=== PATIENT | female | born 1940 | race Hispanic/Latino ===

== ENCOUNTER 2017-08-21 13:15 | Emergency (ER) | payer MEDICARE ==
[2017-08-21 13:16] VITALS: BMI 29.0
[2017-08-21 13:42] VITALS: RESP 18; TEMP 99.1; O2SAT 98
--- NOTE | 2017-08-21 13:46 | ED PDOC ---
Arrival/HPI - General Chief Complaint: Weakness/Neurological Deficit Time Seen by Provider: 08/21/17 13:23 Historian: Patient - History of Present Illness Narrative History of Present Illness (Text): 08/21/17 13:53 A 76 year old female, whose past medical history includes menopause, hypertension, kdiney stones (right nephrectomy 35 years ago), colon cancer ( colectomy 2013, on chemotherapy), presents to the emergency department complaining of generalized weakness. Patient mentions she is currently going through chemotherapy every 3 weeks and most recent treatment was 8 days ago. Patient reports 2 weeks ago, experienced sweats and thought she had the flu. She went to PMD and was told she had no flu and directed patient to her oncologist, Dr. Martini. Yesterday weakness was worse than today and patient was recommended by family to got to the ER. She notes experiencing slight diarrhea, however she considers it a normal side effect of the chemotherapy treatment. Patient denies any fever, cough, any pain, appetite changes, urinary output changes, lightheadedness, leg swelling, or any other complaints at this time. PMD: Dr. Martín Jimenez Oncologist: Dr. Walter Martini Past Medical History - Provider Review Nursing Documentation Reviewed: Yes - Infectious Disease Hx of Infectious Diseases: None - Reproductive Menopause: Yes - Cardiac Hx Hypertension: Yes Hx Pacemaker: No - Pulmonary Hx Respiratory Disorders: No - Neurological Hx Paralysis: No - HEENT Hx HEENT Disorder: No - Renal Hx Renal Disorder: No Hx Kidney Stones: Yes (right nephrectomy 35 yrs ago) - Endocrine/Metabolic Hx Endocrine Disorders: No - Hematological/Oncological Hx Blood Transfusions: No Hx Blood Transfusion Reaction: No Other/Comment: colon ca , on chemo - Integumentary Hx Dermatological Disorder: No - Musculoskeletal/Rheumatological Hx Musculoskeletal Disorders: No - Gastrointestinal Hx Gastrointestinal Disorders: Yes Other/Comment: colon cancer colectomy aug 2013 - Genitourinary/Gynecological Hx Genitourinary Disorders: Yes Hx Ovarian Cancer: Yes (possibility) - Psychiatric Hx Emotional Abuse: No Hx Physical Abuse: No Hx Substance Use: No - Surgical History Other/Comment: colectomy aug 2013 right nephrectomy 35 yrs ago stones - Anesthesia Hx Anesthesia Reactions: No Hx Malignant Hyperthermia: No - Suicidal Assessment Feels Threatened In Home Enviroment: No Family/Social History - Physician Review Nursing Documentation Reviewed: Yes Family/Social History: No Known Family HX Smoking Status: Never Smoked Hx Alcohol Use: Yes (SOCIAL) Hx Substance Use: No Allergies/Home Meds Allergies/Adverse Reactions: Allergies No Known Allergies Allergy (Verified 08/21/17 13:37) Home Medications: Home Meds Medication Instructions Recorded Confirmed Capecitabine 500 mg PO 08/21/17 amLODIPine [Norvasc] 5 mg PO DAILY 08/21/17 08/21/17 Review of Systems - Physician Review All systems were reviewed & negative as marked: Yes - Review of Systems Constitutional: Other (generalized weakness). absent: Fevers Respiratory: absent: Cough Cardiovascular: absent: Chest Pain Gastrointestinal: Diarrhea (slgit diarrhea however according to patient it is a normal side effect to the chemotherapy treatment). absent: Abdominal Pain, Appetite Changes Genitourinary Female: absent: Urine Output Changes Musculoskeletal: absent: Other (leg swelling) Neurological: absent: Other (lightheadedness) Physical Exam Vital Signs Reviewed: Yes Vital Signs Temp Pulse Resp BP Pulse Ox 08/21/17 17:35 79 18 130/71 98 08/21/17 16:39 86 18 134/79 98 08/21/17 13:30 99.1 F 90 18 136/82 98 Temperature: Afebrile Blood Pressure: Normal Pulse: Regular Respiratory Rate: Normal Appearance: Positive for: Well-Appearing Pain Distress: None Mental Status: Positive for: Alert and Oriented X 3 - Systems Exam Head: Present: Atraumatic, Normocephalic Pupils: Present: PERRL Extroacular Muscles: Present: EOMI Conjunctiva: Present: Normal Mouth: Present: Moist Mucous Membranes Neck: Present: Normal Range of Motion Respiratory/Chest: Present: Clear to Auscultation, Good Air Exchange. No: Respiratory Distress, Accessory Muscle Use Cardiovascular: Present: Regular Rate and Rhythm, Normal S1, S2. No: Murmurs Abdomen: Present: Normal Bowel Sounds. No: Tenderness, Distention, Peritoneal Signs Back: Present: Normal Inspection Upper Extremity: Present: Normal Inspection. No: Cyanosis, Edema Lower Extremity: Present: Normal Inspection. No: Edema Neurological: Present: GCS=15, CN II-XII Intact, Speech Normal Skin: Present: Warm, Dry, Normal Color. No: Rashes Psychiatric: Present: Alert, Oriented x 3, Normal Insight, Normal Concentration Medical Decision Making ED Course and Treatment: 08/21/17 13:58 Impression: 76 year old female with generalized weakness. No acute findings on physical examination. Differential: Anemia, Dehydration, Infection Plan: -- EKG -- Labs -- Reassess and disposition Progress Notes: EKG: Ordered, reviewed, and independently interpreted the EKG. Rate : 73 BPM Rhythm : NSR Interpretation : Left Bundle Branch Block Comparison : No previous EKG for comparison. 08/21/17 17:45 WBC was elevated. Patient denies any fever, chills or bodyaches. No cough or urinary complaints. Considering her chemo tx and medical history will obtain a CXR and UA. Patient agrees with plan after discussion. CXR was negative for Pneumonia. UA was positive for UTI. Case was discussed her Oncologist Dr. Martini who recommends we give her Cipro and IVF and she can follow up with him tomorrow. He will order a CT or PET scan with IV contrast for further evaluation of her cancer. He does not feel she needs admission for this and recommends outpatient follow up. Patient feels significantly better after IVF hydration. She denies any weaknes, lightheadedness or dizziness. She feels more energetic. Continues to be afebrile in the ED. She was given Cipro PO. She was advised to continue Cipro as prescribed. I discussed the case with Dr. Jose Roberto Jimenez, her PMD to make him aware that she will be following up with him this week. Patient feels comfortable with the plan for discharge and understands that she can and should return if symptoms worsen, fever, lightheadedness or any concern. - Lab Interpretations Microbiology Results: Microbiology Results 08/21/17 15:50 Urine Urine Culture - Final Escherichia Coli Lab Results: 08/21/17 14:25 08/21/17 14:25 Lab Results 08/21/17 15:50: Urine Color Yellow, Urine Appearance Turbid, Urine pH 6.0, Ur Specific [place] 1.020, Urine Protein 100 H, Urine Glucose (UA) Negative, Urine Ketones Negative, Urine Blood Trace-intact H, Urine Nitrate Positive H, Urine Bilirubin Negative, Urine Urobilinogen 0.2, Ur Leukocyte Esterase Moderate H, Urine RBC 0 - 2, Urine WBC 15 - 20, Ur Epithelial Cells 4 - 5, Urine Bacteria Many 08/21/17 14:25: Sodium 137, Potassium 4.2, Chloride 103, Carbon Dioxide 24, Anion Gap 15, BUN 18, Creatinine 1.3 H, Est GFR ( Amer) 48, Est GFR (Non- Af Amer) 40, Random Glucose 141 H, Calcium 9.4, Magnesium 1.7, Total Bilirubin 1.3, AST 20, ALT 13, Alkaline Phosphatase 105, Total Protein 7.8, Albumin 4.0, Globulin 3.8, Albumin/Globulin Ratio 1.1 08/21/17 14:25: WBC 14.7 H D, RBC 4.28, Hgb 12.8, Hct 39.4, MCV 92.1, MCH 29.9, MCHC 32.5, RDW 15.4 H, Plt Count 231, MPV 8.8, Gran % 76.9 H, Lymph % (Auto) 11.2 L, [place] % (Auto) 11.7 H, Eos % (Auto) 0.0 L, Baso % (Auto) 0.2, Gran # 11.30 H, Lymph # 1.6, [place] # 1.7 H, Eos # 0.0, Baso # 0.03 - RAD Interpretation Radiology Orders: 08/21/17 15:21 CXR [CHEST PORTABLE] [RAD] Stat - Medication Orders Current Medication Orders: Discontinued Medications Ciprofloxacin (Cipro) 500 mg PO ONCE STA PRN Reason: Protocol Stop: 08/21/17 17:27 Last Admin: 08/21/17 17:30 Dose: 500 mg Sodium Chloride (Sodium Chloride 0.9%) 1,000 mls @ 100 mls/hr IV .Q10H SHEMAR Last Admin: 08/21/17 16:11 Dose: 100 mls/hr eMAR Start Stop Document 08/21/17 16:11 EQ (Rec: 08/21/17 16:11 EQ [facility] [id number]) Intravenous Solution Start Date 08/21/17 Start Time 16:11 Sodium Chloride (Sodium Chloride 0.9%) 1,000 mls @ 999 mls/hr IV .Q1H1M STA Stop: 08/21/17 16:36 Last Admin: 08/21/17 16:11 Dose: 999 mls/hr eMAR Start Stop Document 08/21/17 16:11 EQ (Rec: 08/21/17 16:11 EQ [facility] [id number]) Intravenous Solution Start Date 08/21/17 Start Time 16:11 - Scribe Statement The provider has reviewed the documentation as recorded by the Pal Adkins Provider Scribe Attestation: All medical record entries made by the Pal were at my direction and personally dictated by me. I have reviewed the chart and agree that the record accurately reflects my personal performance of the history, physical exam, medical decision making, and the department course for this patient. I have also personally directed, reviewed, and agree with the discharge instructions and disposition. Disposition/Present on Arrival - Present on Arrival Any Indicators Present on Arrival: No History of DVT/PE: No History of Uncontrolled Diabetes: No Urinary Catheter: No History of Decub. Ulcer: No History Surgical Site Infection Following: None - Disposition Have Diagnosis and Disposition been Completed?: Yes Diagnosis: UTI (urinary tract infection), Weakness Disposition: HOME/ ROUTINE Disposition Time: 17:45 Patient Plan: Discharge Condition: IMPROVED Discharge Instructions (ExitCare): Weakness (ED) Additional Instructions: Ms Deutsch, thank you for letting us take care of you today. Your provider was Dr. Ferguson. You were treated for UTI, Weakness. The emergency medical care you received today was directed at your acute symptoms. If you were prescribed any medication, please fill it and take as directed. It may take several days for your symptoms to resolve. Return to the Emergency Department if your symptoms worsen, do not improve, or if you have any other problems. MAKE SURE TO FOLLOW UP WITH DR. MARTINI TOMORROW AND DR. MARTÍN JIMENEZ. Please contact your doctor or call one of the physicians/clinics you have been referred to that are listed on the Patient Visit Information form that is included in your discharge packet. Bring any paperwork you were given at discharge with you along with any medications you are taking to your follow up visit. Our treatment cannot replace ongoing medical care by a primary care provider (PCP) outside of the emergency department. Thank you for allowing the [facility] team to be part of your care today. If you had an X-Ray or CT scan: A Radiologist will review the ED reading if any change in treatment is needed we will contact you. If you had a blood, urine, or wound culture: It will take several days for the results, if any change in treatment is needed we will contact you. If you had an STI test: It will take 48 hours for the results. Please call after 1 week if you have not heard back. Prescriptions: Ciprofloxacin [Cipro] 500 mg PO Q12 #14 tab Referrals: Sherita GALLEGOS,Martín Carrasco MD [Primary Care Provider] - Follow up with primary Walter Martini MD [Medical Doctor] - Follow up with primary Forms: [facility] ([place])
[2017-08-21 14:40] LABS: BASO # 0.03 K/mm3 (0.0-2.0); BASO % 0.2 % (0.0-3.0); GRAN # 11.3 (1.4-6.5); GRAN % 76.9 % (50.0-68.0); HEMOGLOBIN 12.8 g/dL (12.0-16.0); LYMPH # 1.6 (1.2-3.4); LYMPH % 11.2 % (22.0-35.0); MEAN CELL VOLUME 92.1 fl (80.0-105.0); MEAN CORPUSCULAR HEMOGLOBIN 29.9 pg (25.0-35.0); MEAN CORPUSCULAR HGB CONC 32.5 g/dl (31.0-37.0); MEAN PLATELET VOLUME 8.8 fl (7.0-11.0); MONO # 1.7 (0.1-0.6); MONO % 11.7 % (1.0-6.0); RBC 4.28 10^6/uL (3.5-6.1); RED CELL DISTRIBUTION WIDTH 15.4 % (11.5-14.5); WHITE BLOOD COUNT 14.7 10^3/ul (4.5-11.0)
[2017-08-21 14:50] LABS: ALB/GLOB RATIO 1.1 (1.1-1.8); CALCIUM 9.4 mg/dL (8.4-10.5); MAGNESIUM 1.7 mg/dL (1.7-2.2)
[2017-08-21] MEDS ORDERED: Sodium Chloride 0.9% 1,000 ML IV STA (15:36)
[2017-08-21] MEDS ORDERED: Sodium Chloride 0.9% 1,000 ML IV SCH (15:45)
[2017-08-21 16:01] LABS: URINE BILIRUBIN NEGATIVE (NEGATIVE); URINE BLOOD TRACE-INTACT (NEGATIVE); URINE GLUCOSE (UA) NEGATIVE (NEGATIVE); URINE LEUKOCYTE ESTERASE MODERATE Leu/uL (NEGATIVE); URINE NITRATE POSITIVE (NEGATIVE); URINE PROTEIN 100 mg/dL (<30 mg/dL); URINE UROBILINOGEN 0.2 E.U./dL (<1 E.U./dL)
[2017-08-21 16:03] LABS: URINE APPEARANCE TURBID (CLEAR); URINE COLOR YELLOW (YELLOW)
[2017-08-21 16:06] LABS: URINE BACTERIA MANY (NEG); URINE RBC 0 - 2 /hpf (0-2); URINE WBC 15 - 20 /hpf (0-6)
--- NOTE | 2017-08-21 16:19 | RAD ---
HISTORY: weakness COMPARISON: 08/07/2013 FINDINGS: LUNGS: No active pulmonary disease. PLEURA: No significant pleural effusion identified, no pneumothorax apparent. CARDIOVASCULAR: Normal. OSSEOUS STRUCTURES: No significant abnormalities. VISUALIZED UPPER ABDOMEN: Normal. OTHER FINDINGS: None. IMPRESSION: No active disease.
[2017-08-21 17:58] VITALS: BP 130/71; PULSE 79
--- NOTE | 2017-08-21 21:51 | CARD ---
APPROVED REPORT EKG Measurement Heart [id number] <Conclusion> Normal sinus rhythm Left posterior fascicular block Abnormal ECG
== END 2017-08-21 17:45 | disposition home or self-care (01) ==
LOC: ED 13:15
DX: N39.0 Urinary tract infection, site not specified (principal); R53.1 Weakness; I10 Essential (primary) hypertension; Z85.038 Personal history of other malignant neoplasm of large intestine
CPT/HCPCS: 71045; 80053; 81001; 83735; 85025; 87086; 93005; 99285; J7040

== ENCOUNTER 2017-09-12 08:49 | Day surgery (SDC) | payer MEDICARE ==
[2017-09-07 16:50] VITALS: BMI 25.0
[2017-09-12 09:20] LABS: BASO # 0.04 K/mm3 (0.0-2.0); BASO % 0.7 % (0.0-3.0); EOS # 0.1 (0.0-0.7); EOS % 2.3 % (1.5-5.0); GRAN # 3.54 (1.4-6.5); HEMOGLOBIN 12.8 g/dL (12.0-16.0); LYMPH # 1.9 (1.2-3.4); LYMPH % 30.3 % (22.0-35.0); MEAN CELL VOLUME 92.6 fl (80.0-105.0); MEAN CORPUSCULAR HEMOGLOBIN 29.8 pg (25.0-35.0); MEAN CORPUSCULAR HGB CONC 32.2 g/dl (31.0-37.0); MEAN PLATELET VOLUME 9.1 fl (7.0-11.0); MONO # 0.5 (0.1-0.6); MONO % 8.7 % (1.0-6.0); RBC 4.3 10^6/uL (3.5-6.1); RED CELL DISTRIBUTION WIDTH 16.2 % (11.5-14.5); WHITE BLOOD COUNT 6.1 10^3/ul (4.5-11.0)
[2017-09-12 09:30] LABS: BLOOD UREA NITROGEN 17 mg/dL (7-21); CALCIUM 9.8 mg/dL (8.4-10.5); GFR AFRICAN-AMERICAN > 60; GFR NON-AFRICAN AMERICAN > 60
[2017-09-12 09:36] LABS: INR 0.91 (0.93-1.08); PARTIAL THROMBOPLASTIN TIME 30.5 Seconds (25.1-36.5); PROTHROMBIN TIME 10.5 SECONDS (9.4-12.5)
[2017-09-12] MEDS ORDERED: Lidocaine 2% Inj (20ml) ONE (10:31)
[2017-09-12] MEDS ORDERED: Midazolam 2 MG/2 ML VIAL ONE ×2 (10:32→11:10)
[2017-09-12] MEDS ORDERED: HEPARIN SODIUM/NS 1,000 ML IV ONE (10:32)
[2017-09-12] MEDS ORDERED: Oxycodone/Acetaminophen 5/325 mg Tab PO PRN (12:02)
[2017-09-12] MEDS ORDERED: Sodium Chloride 0.45% 1,000 ML IV SCH (12:15)
[2017-09-12 12:46] VITALS: PULSE 69; RESP 20; TEMP 97.4; O2SAT 95
[2017-09-12 13:42] VITALS: BP 152/79
--- NOTE | 2017-09-12 17:34 | VASCULAR ---
PROCEDURE: Ultrasound and fluoroscopic right internal jugular venous access port. CLINICAL HISTORY: Colon carcinoma.Venous port for chemotherapy. PHYSICIAN(S): Quirino Cotton M.D. TECHNIQUE: The relative risks and indications of the procedure were explained to the patient and consent obtained. The patient was placed supine on the arteriogram table and the right neck and chest prepped and draped in the usual sterile fashion. Conscious sedation monitoring was provided throughout the procedure by a nurse. Antibiotics were given prior to the procedure. Under direct ultrasound guidance, the right internal jugular vein was punctured with a micro-puncture set. A 0.035 angled Glidewire was advanced into the IVC. A 4 cm incision was made below the right clavicle and the pocket blunted dissected. A 8 Kinyarwanda single-lumen catheter, 21 cm long, was advanced to the SVC/RA junction. The catheter was trimmed and attached to the port. The port aspirates and injects easily. The port was placed in the pocket and closed in 2 layers. The patient tolerated the procedure well. IMPRESSION: Ultrasound and fluoroscopically placed right internal jugular venous access port.
== END 2017-09-12 13:40 | disposition home or self-care (01) ==
LOC: SDSVAS 08:49
PROVIDERS: ATTEND Radiology Vascular & Interventional Radiology
DX: C18.9 Malignant neoplasm of colon, unspecified (principal); I10 Essential (primary) hypertension; Z87.891 Personal history of nicotine dependence
CPT/HCPCS: 36415; 36561; 76937; 77001; 80048; 85025; 85610; 85730; 99152; 99153; C1769; C1788; J0690; J1644; J2250; J2405; J3010; J7030 ×2